=== PATIENT | male | born 1960 | race Caucasian/White ===

== ENCOUNTER 2018-05-24 07:06 | Day surgery (SDC) | payer OTHER ==
[~2018-05-24] VITALS: Ht 180.3 cm; Wt 106.3 kg
[2018-05-24] MEDS ORDERED: MAGN400C PO (07:42)
[2018-05-24] MEDS ORDERED: VITA100022 PO (07:42)
[2018-05-24] MEDS ORDERED: PRAV40TA2 PO (07:42)
[2018-05-24] MEDS ORDERED: AZEL23SP NAS (07:42)
[2018-05-24] MEDS ORDERED: LEVO75TA5 PO (07:42)
[2018-05-24] MEDS ORDERED: LANS15CA5 PO (07:42)
[2018-05-24] MEDS ORDERED: KRIL1CAP5 PO (07:42)
[2018-05-24] MEDS ORDERED: LISI5TAB7 PO (07:42)
[2018-05-24] MEDS ORDERED: CHOL5000 PO (07:42)
[2018-05-24] MEDS ORDERED: SODIUM CHLORIDE 0.9% 1,000 ML IV SCH (07:43)
[2018-05-24 07:46] VITALS: BP 154/98
[2018-05-24] MEDS ORDERED: PLEASE ENTER HEIGHT AND WEIGHT MC SCH (08:00)
[2018-05-24] MEDS ORDERED: LIDOCAINE-MPF 1%, 5ML ONE (08:05)
[2018-05-24 08:09] LABS: INTERNATIONAL NORMALIZED RATIO 1.02 (0.93-1.1); PROTHROMBIN TIME 10.6 Seconds (9.6-11.5)
[2018-05-24] MEDS ORDERED: NALOXONE 1 MG/ML, 2ML ONE (09:12)
[2018-05-24] MEDS ORDERED: MIDAZOLAM 1 MG/ML, 5ML ONE (09:12)
[2018-05-24] MEDS ORDERED: FLUMAZENIL 0.1 MG/1 ML, 5ML ONE (09:12)
[2018-05-24] MEDS ORDERED: FENTANYL PF 100 MCG/2ML ONE (09:12)
== END 2018-05-24 11:10 | disposition home or self-care (01) ==
LOC: OUT 07:06
PROVIDERS: ATTEND Internal Medicine Gastroenterology
DX: K76.0 Fatty (change of) liver, not elsewhere classified (principal); E83.119 Hemochromatosis, unspecified; E78.00 Pure hypercholesterolemia, unspecified; E03.9 Hypothyroidism, unspecified; I10 Essential (primary) hypertension; Z98.52 Vasectomy status; Z98.890 Other specified postprocedural states; Z79.899 Other long term (current) drug therapy; Z72.89 Other problems related to lifestyle
CPT/HCPCS: 36415; 47000; 77012; 85610; 88307; 88313; 99156; 99157; J2250; J3010; J7030; J2310

== ENCOUNTER → 2018-11-07 | Outpatient (CLI) | payer OTHER ==
[~2018-11-07] MED LIST: AZEL23SP NAS; CHOL5000 PO; KRIL1CAP5 PO; LANS15CA5 PO; LEVO75TA5 PO; LISI5TAB7 PO; MAGN400C PO; PRAV40TA2 PO; VITA100022 PO
== END | disposition home or self-care (01) ==
LOC: CFH 14:28
PROVIDERS: ATTEND Family Medicine
DX: M51.34 Other intervertebral disc degeneration, thoracic region (principal); M47.814 Spondylosis without myelopathy or radiculopathy, thoracic region; M48.02 Spinal stenosis, cervical region; M50.20 Other cervical disc displacement, unspecified cervical region
CPT/HCPCS: 72146

== ENCOUNTER 2019-08-29 02:56 | Emergency (ER) | payer OTHER ==
[~2019-08-29] VITALS: Ht 180.3 cm; Wt 102.3 kg
--- NOTE | 2019-08-29 03:39 | NUR ---
PT TO CT. FAMILY AT BEDSIDE.
[2019-08-29 03:40] LABS: BASOPHILS # (AUTO) 0.05 x10^3/uL (0-0.1); BASOPHILS % (AUTO) 1 % (0-1); EOSINOPHILS # (AUTO) 0.45 x10^3/uL (0-0.4); EOSINOPHILS % (AUTO) 7 % (1-7); LYMPHOCYTES # (AUTO) 1.69 x10^3/uL (1-3.4); LYMPHOCYTES % (AUTO) 26 % (22-44); MD NO; MEAN CORPUSCULAR HGB CONC 33.4 g/dL (33.2-36.2); MEAN CORPUSCULAR VOLUME 92.9 fL (81-97); MEAN PLATELET VOLUME 8.7 fL (7.4-10.4); MONOCYTES # (AUTO) 0.45 x10^3/uL (0.2-0.8); MONOCYTES % (AUTO) 7 % (2-9); NEUTROPHILS # (AUTO) 3.93 x10^3/uL (1.8-6.8); NEUTROPHILS % (AUTO) 60 % (42-75); PLATELET COUNT 300 x10^3/uL (130-400); RED CELL DISTRIBUTION WIDTH 12.8 % (9.4-14.8)
[2019-08-29 03:43] LABS: ALANINE AMINOTRANSFERASE 64 U/L (12-78); ALBUMIN 4.1 g/dL (3.4-5.0); ANION GAP 4 mmol/L (5-15); CALCIUM 8.9 mg/dL (8.5-10.1); CHLORIDE 107 mmol/L (98-107)
[2019-08-29 03:47] LABS: ALKALINE PHOSPHATASE 90 U/L (45-117); BILIRUBIN,TOTAL 0.6 mg/dL (0.2-1.0); TOTAL PROTEIN 8.3 g/dL (6.4-8.2); TROPONIN I < 0.015 ng/mL (0.000-0.045)
[2019-08-29] MEDS ORDERED: CEFTRIAXONE PMX 1GM/50ML 50 ML IV ONE (04:30)
[2019-08-29 04:50] VITALS: BP 132/86
--- NOTE | 2019-08-29 04:57 | NUR ---
PT AMBULATED HALLS. PT DENIES ANY DIZZINESS, CP, SOB, NUMBNESS.
== END 2019-08-29 05:17 | disposition home or self-care (01) ==
LOC: ED 04:09
DX: S16.1XXA Strain of muscle, fascia and tendon at neck level, initial encounter (principal); S09.90XA Unspecified injury of head, initial encounter; R55 Syncope and collapse; N28.9 Disorder of kidney and ureter, unspecified; E03.9 Hypothyroidism, unspecified; W18.30XA Fall on same level, unspecified, initial encounter; Y93.89 Activity, other specified; Y92.009 Unspecified place in unspecified non-institutional (private) residence as the place of occurrence of the external cause; Y99.8 Other external cause status
CPT/HCPCS: 36415; 70450; 70486; 71045; 72125; 80053; 84484; 85025; 93005; 99284